=== PATIENT | female | born 1985 | race African-American/Black ===

== ENCOUNTER 2016-12-15 15:46 | Emergency (ER) | payer MEDICAID ==
[~2016-12-15] VITALS: Ht 165.1 cm; Wt 86.2 kg
[2016-12-15 15:56] VITALS: BP 113/78
[2016-12-15] MEDS ORDERED: PROAIR HFA8.5 GM INH (16:43)
[2016-12-15] MEDS ORDERED: PREDNISONE20 MG ORAL (16:43)
[2016-12-15] MEDS ORDERED: IBUPROFEN600 MG ORAL (16:43)
[2016-12-15] MEDS ORDERED: PROMETHAZI6.25 MG/1 ORAL (16:43)
[2016-12-15 17:19] VITALS: BP 122/78
--- NOTE | 2016-12-16 21:02 | Emergency Room Report ---
History of Present Illness General Chief Complaint: Chest Pain Source: Patient Present Illness HPI The patient is a 31-year-old female presenting for 3 days of cough and chest pain. The patient denies any sick contacts recent travel. She admits to history of smoking cigarettes. Pain is described as an 8/10 dull ache to the midchest and radiates to the left side of the back. Worse with coughing. She denies shortness of breath. She denies palpitations. She denies any cardiac history She denies any other symptoms including nausea, vomiting, dizziness, abdominal pain Allergies: Coded Allergies: No Known Allergies (Unverified , 12/15/16) Patient History Past Medical History: see triage record Pertinent Family History: none Social History: Reports: smoking Last Menstrual Period: 12/10/16 Now: No : 0 Para: 0 Reviewed Nursing Documentation: PMH: Agreed, PSxH: Agreed Review of Systems All Other Systems: negative except mentioned in HPI Physical Exam Vital Signs Date Time Temp Pulse Resp B/P Pulse Ox O2 Delivery O2 Flow Rate FiO2 12/15/16 15:56 98.2 93 16 113/78 98 Room Air 12/15/16 16:30 99 Sp02 EP Interpretation: reviewed, normal General Appearance: no apparent distress, alert, GCS 15, non-toxic Head: normocephalic, atraumatic Eyes: bilateral eye PERRL, bilateral eye normal inspection ENT: hearing grossly normal, normal pharynx, no angioedema, normal voice Neck: full range of motion, supple/symm/no masses Respiratory: chest non-tender, normal breath sounds, speaking full sentences, wheezing - minimal diffuse Cardiovascular #1: regular rate, rhythm, no edema, no JVD, no murmur, no rub Gastrointestinal: normal bowel sounds, non tender, soft, non-distended, no guarding, no rebound Musculoskeletal: back normal, gait/station normal, normal range of motion, non- tender Neurologic: alert, oriented x3, responsive, motor strength/tone normal, sensory intact, speech normal Psychiatric: judgement/insight normal, memory normal, mood/affect normal, no suicidal/homicidal ideation Skin: normal color, no rash, warm/dry, well hydrated Lymphatic: no adenopathy Medical Decision Making PA Attestation Dr. Rivera is my supervising physician. Patient management was discussed with my supervising physician Diagnostic Impression: Primary Impression: Bronchitis ER Course The patient is a 31-year-old female presenting for 3 days of cough and chest pain Differential diagnosis include but not limited to bronchitis, asthma, pharyngitis, ACS, PE, among others PE: vitals WNL. NAD HEENT exam is unremarkable. RRR Lungs reveal minimal bilateral diffuse wheezing. Otherwise exam is unremarkable EKG shows no acute changes. Normal sinus rhythm. Normal rate The patient will be treated for bronchitis with oral steroids, albuterol and cough medication. She is to followup with primary doctor ER precautions given EKG Diagnostic Results EP Interpretation: NSR. No acute findings Rate: normal Rhythm: NSR ST Segments: no acute changes ASA given to the pt in ED: No PA Scribe Text EKG was reviewed and read with my supervising physician. No acute ST segment changes are seen. Normal rate and rhythm. No acute changes. Last Vital Signs Date Time Temp Pulse Resp B/P Pulse Ox O2 Delivery O2 Flow Rate FiO2 12/15/16 17:19 98.2 90 18 122/78 98 Room Air 12/15/16 16:30 99 Status: improved Disposition: HOME, SELF-CARE Condition: Improved Scripts Promethazine Hcl (PROMETHAZINE HCL*) 6.25 Mg/5 Ml Syrup 5 ML ORAL Q6H, #120 ML 0 Refills Prov: TERZIAN,SANDY P.A. 12/15/16 Albuterol Sulfate* (PROAIR HFA*) 8.5 Gm Hfa.aer.ad 2 PUFFS INH Q6H, #8.5 GM 0 Refills Prov: TERZIAN,SANDY P.A. 12/15/16 Prednisone* (PREDNISONE*) 20 Mg Tablet 40 MG ORAL DAILY, #10 TAB Prov: TERZIAN,SANDY P.A. 12/15/16 Ibuprofen* (MOTRIN*) 600 Mg Tablet 600 MG ORAL Q8H Y for For Pain, #30 TAB 0 Refills Prov: TERZIAN,SANDY P.A. 12/15/16 Referrals: [facility],REFERRING (PCP) Patient Instructions: Acute Bronchitis Additional Instructions: I discussed my findings with the patient. All questions and concerns have been answered. Treatment and medication compliance have been addressed. I advised the patient that they need to follow up with PMD in 3-5 days. Return to ED if pain remains or worsens, cough worsens or remains, you notice blood in your sputum, you notice wheezing, you experience a fever, or if needed for any reason. Patient verbalized understanding of discharge instructions. SANDY FOURNIER Dec 16, 2016 21:02
== END 2016-12-15 17:21 | disposition home or self-care (01) ==
LOC: EMR 17:00
DX: J40 Bronchitis, not specified as acute or chronic (principal); F17.200 Nicotine dependence, unspecified, uncomplicated
CPT/HCPCS: 93005; 99283

== ENCOUNTER 2017-01-12 22:16 | Emergency (ER) | payer MEDICAID ==
[~2017-01-12] VITALS: Ht 165.1 cm; Wt 54.0 kg
[~2017-01-12 22:16] MED LIST: IBUPROFEN600 MG ORAL; PREDNISONE20 MG ORAL; PROAIR HFA8.5 GM INH; PROMETHAZI6.25 MG/1 ORAL
[2017-01-12 22:40] VITALS: BP 125/74
[2017-01-12] MEDS ORDERED: HYDROmorphone 1mg/ml Carpuject IVP ONE (22:45)
--- NOTE | 2017-01-12 22:59 | Emergency Room Report ---
History of Present Illness General Chief Complaint: Abdominal Pain Source: Patient Present Illness HPI This is a 31-year-old female who has a history of hours fibroids. She said that another ER to her that the size of fibroids about 7 months . She has chronic abdominal pain. She hasn't been able to see a publicity agent for evaluation and possible surgery. She presents with chief complaint of abdominal pain. Mostly left side. No nausea no vomiting. Pain is 10 out of 10. Worse than his usual pain. No fever or chills. Does have diarrhea. No other complaint. No urinary complaint. Allergies: Coded Allergies: No Known Allergies (Unverified , 12/15/16) Patient History Past Medical History: see triage record, old chart reviewed Past Surgical History: other Pertinent Family History: none Social History: Denies: smoking Last Menstrual Period: DECEMBER 09 ON DEPO SHOT Now: No Immunizations: other Reviewed Nursing Documentation: PMH: Agreed, PSxH: Agreed Review of Systems Eye: Denies: blurred vision, eye pain ENT: Denies: ear pain, nose congestion, throat swelling Respiratory: Denies: cough, shortness of breath Cardiovascular: Denies: chest pain, palpitations Gastrointestinal: Reports: abdominal pain, Denies: diarrhea, nausea, vomiting Musculoskeletal: Denies: back pain, joint pain Skin: Denies: rash Neurological: Denies: headache, numbness Endocrine: Denies: increased thirst, increased urine Hematologic/Lymphatic: Denies: easy bruising All Other Systems: negative except mentioned in HPI Physical Exam Vital Signs Date Time Temp Pulse Resp B/P Pulse Ox O2 Delivery O2 Flow Rate FiO2 01/12/17 22:24 99.5 114 18 126/74 98 Room Air vitals normal except for tachycardia Sp02 EP Interpretation: reviewed, normal General Appearance: well appearing, no apparent distress, alert Head: normocephalic, atraumatic Eyes: bilateral eye EOMI, bilateral eye PERRL ENT: hearing grossly normal, normal pharynx Neck: full range of motion, supple, no meningismus Respiratory: chest non-tender, lungs clear, normal breath sounds Cardiovascular #1: regular rate, rhythm, no murmur Gastrointestinal: normal bowel sounds, no organomegaly, no bruit, non-distended , tenderness - Diffuse lower quadrants. Large palpable mass to as above umbilicus Musculoskeletal: back normal, gait/station normal, normal range of motion Psychiatric: mood/affect normal Skin: warm/dry Medical Decision Making Diagnostic Impression: Primary Impression: Pelvic pain Additional Impression: Fibroid, uterine Qualified Codes: D25.9 - Leiomyoma of uterus, unspecified ER Course Patient with large uterine fibroid. Is causing pain probably secondary to obstruction. No evidence of infection. No evidence of torsion. No evidence of ectopic. She will probably need partial hysterectomy. We'll discharge home. Pain is better controlled now. Lab Results Impression labs normal Last Vital Signs Date Time Temp Pulse Resp B/P Pulse Ox O2 Delivery O2 Flow Rate FiO2 01/12/17 22:24 99.5 114 18 126/74 98 Room Air Status: improved Disposition: HOME, SELF-CARE Condition: Stable Scripts Hydrocodone/Acetaminophen 5-325* (HYDROCODONE/ACETAMINOPHEN 5-325*) 1 Each Tablet 1 TAB ORAL Q6H Y for For Pain, #30 TAB 0 Refills Prov: DAVID YANEZ M.D. 01/13/17 Additional Instructions: Followup with your DrAdriana in 7 days. You would need a referral to see a publicity agent for possible partial hysterectomy. Return if symptom worsen. DAVID YANEZ M.D. Jan 12, 2017 22:59
[2017-01-12 23:21] LABS: APPEARANCE,URINE CLEAR; BASOPHILS % (AUTO) 1.3 % (0.0-2.0); EOSINOPHILS % (AUTO) 1.5 % (0.0-3.0); KETONES,URINE NEGATIVE (NEGATIVE); LEUKOCYTE ESTERASE ,URINE 2+ (NEGATIVE); LYMPHOCYTES % (AUTO) 20.6 % (20.0-45.0); MEAN CORPUSCULAR HEMOGLOBIN 34.2 PG (27.0-31.0); MEAN CORPUSCULAR HGB CONC 35.4 G/DL (32.0-36.0); MEAN CORPUSCULAR VOLUME 96 FL (80-99); MEAN PLATELET VOLUME 9.2 FL (6.5-10.1); MONOCYTES % (AUTO) 8.6 % (1.0-10.0); NEUTROPHILS % (AUTO) 68.1 % (45.0-75.0); NITRITE,URINE NEGATIVE (NEGATIVE); PH,URINE 6 (4.5-8.0); PLATELET COUNT 234 K/UL (150-450); PROTEIN,URINE 1+ (NEGATIVE); RED BLOOD COUNT 4.05 M/UL (4.20-5.40); RED CELL DISTRIBUTION WIDTH 11.2 % (11.6-14.8); UROBILINOGEN,URINE NORMAL MG/DL (0.0-1.0); WHITE BLOOD COUNT 8.6 K/UL (4.8-10.8)
[2017-01-12 23:29] LABS: RBC,URINE 0-2 /HPF (0 - 2); WBC,URINE 0-2 /HPF (0 - 2)
[2017-01-12 23:30] LABS: BACTERIA,URINE OCCASIONAL /HPF; MUCUS,URINE MANY /LPF (NONE/OCC); SQUAMOUS EPITHELIAL CELL,UR MODERATE /LPF (NONE/OCC)
[2017-01-12] MEDS ORDERED: Ketorolac 30mg Inj IV ONE (23:45)
[2017-01-12 23:50] VITALS: BP 120/78
[2017-01-12 23:57] LABS: ALANINE AMINOTRANSFERASE 26 U/L (3-33); ALBUMIN/GLOBULIN RATIO 1.1 (1.0-2.7); ANION GAP 12 (5-15); ASPARTATE AMINO TRANSFERASE 20 U/L (5-40); CALCIUM 9.3 mg/dL (8.6-10.2); CARBON DIOXIDE 22 mEQ/L (20-30); CHLORIDE 107 mEQ/L (98-107); CREATININE 0.9 mg/dL (0.5-0.9); GLOMERULAR FILTRATION RATE > 60 mL/min (>60); HEMOLYSIS 3; LIPASE 22 U/L (< 60); POTASSIUM 4.1 mEQ/L (3.4-4.9); SODIUM 141 mEQ/L (135-145); TOTAL PROTEIN 7.8 g/dL (6.6-8.7)
[2017-01-13] MEDS ORDERED: HYDROCODON-ACE1 EA15 ORAL (00:19)
== END 2017-01-13 00:23 | disposition home or self-care (01) ==
LOC: EMR 22:35
DX: D25.9 Leiomyoma of uterus, unspecified (principal); R10.2 Pelvic and perineal pain; R00.0 Tachycardia, unspecified
CPT/HCPCS: 36415; 80053; 81003; 81025; 83690; 85025; 96374; 96375; 99284; J1170; J1885; J2405

== ENCOUNTER 2017-01-28 23:45 | Emergency (ER) | payer MEDICAID ==
[~2017-01-28] VITALS: Ht 165.1 cm; Wt 90.7 kg
[~2017-01-28 23:45] MED LIST changes: +HYDROCODON-ACE1 EA15 ORAL
--- NOTE | 2017-01-29 00:20 | Emergency Room Report ---
History of Present Illness General Chief Complaint: Abdominal Pain Source: Patient Present Illness HPI Patient presents with complaints of lower abdominal suprapubic abdominal pain Patient reports that she has known history of fibroids Was diagnosed last year with ultrasound And is trying to have them removed the pain over the last weekend has worsened Denies any dysuria frequency denies any chest pain or short of breath There is some flank discomfort with this Patient was here recently with similar complaints denies any vaginal discharge or foul smell Allergies: Coded Allergies: No Known Allergies (Unverified , 12/15/16) Patient History Past Medical History: see triage record Pertinent Family History: none Last Menstrual Period: 01/10 Now: No : 0 Para: 0 Reviewed Nursing Documentation: PMH: Agreed, PSxH: Agreed Nursing Documentation-PMH Hx Gastrointestinal Problems: Yes - FIBROIDS Review of Systems All Other Systems: negative except mentioned in HPI Physical Exam Vital Signs Date Time Temp Pulse Resp B/P Pulse Ox O2 Delivery O2 Flow Rate FiO2 01/28/17 23:59 99.1 81 16 139/66 96 Room Air Sp02 EP Interpretation: reviewed, normal General Appearance: well appearing, no apparent distress Head: normocephalic, atraumatic Eyes: bilateral eye EOMI, bilateral eye PERRL ENT: hearing grossly normal, normal pharynx, TMs + canals normal, uvula midline Neck: full range of motion, supple, no meningismus, no bony tend Respiratory: lungs clear, normal breath sounds, no rhonchi, no respiratory distress, no retraction, no accessory muscle use Cardiovascular #1: normal peripheral pulses, regular rate, rhythm, no edema, no gallop, no JVD, no murmur Gastrointestinal: normal bowel sounds, non tender, soft, no organomegaly, non- distended, no guarding, no hernia, no pulsatile mass, no rebound, other - Patient has a palpable mass in the lower suprapubic lower abdominal region likely in line with the reported fibroid Genitourinary: no CVA tenderness Musculoskeletal: normal inspection Neurologic: oriented x3, responsive, cake icer and packer III-XII nml as tested, motor strength/ tone normal, sensory intact Psychiatric: mood/affect normal Skin: normal color, no rash, warm/dry, palpation normal Lymphatic: normal inspection, no adenopathy Medical Decision Making Diagnostic Impression: Primary Impression: Abdominal pain Additional Impression: Uterine fibroid ER Course Multiple differentials were considered Patient has had a recent visit with extensive workup along with urine sample obtained this was not repeated Had discussion with the patient regarding the need for outpatient followup Patient's uterine fibroids are palpable clinically showing signs of extremely enlarged pathology Patient has been given recent [place] prescription requesting different prescription at this time And the patient was encouraged to followup as an outpatient process Last Vital Signs Date Time Temp Pulse Resp B/P Pulse Ox O2 Delivery O2 Flow Rate FiO2 01/28/17 23:59 99.1 81 16 139/66 96 Room Air Status: unchanged Disposition: HOME, SELF-CARE Condition: Stable Scripts Ibuprofen* (MOTRIN*) 600 Mg Tablet 600 MG ORAL Q8H Y for For Pain, #20 TAB 0 Refills Prov: GUANAKITO NEWELL D.O. 01/29/17 Additional Instructions: Patient is provided with the discharge instructions notified to follow up with primary doctor in the next 2-3 days otherwise return to the er with any worsening symptoms. Please note that this report is being documented using [employer] technology. This can lead to erroneous entry secondary to incorrect interpretation by the dictating instrument. GUANAKITO NEWELL D.O. Jan 29, 2017 00:20
[2017-01-29] MEDS ORDERED: Ketorolac 60mg Inj IM ONE (00:30)
[2017-01-29] MEDS ORDERED: IBUPROFEN600 MG ORAL (00:39)
[2017-01-29 01:27] VITALS: BP_SYST 129; BP_SYST 139; BP_DIAS 66; BP_DIAS 72
== END 2017-01-29 00:50 | disposition home or self-care (01) ==
LOC: EMR 01-29 00:20
DX: D25.9 Leiomyoma of uterus, unspecified (principal); R10.30 Lower abdominal pain, unspecified
CPT/HCPCS: 96372; 99283

== ENCOUNTER 2017-03-26 00:36 | Emergency (ER) | payer MEDICAID ==
[~2017-03-26] VITALS: Ht 165.1 cm; Wt 90.7 kg
[2017-03-26] MEDS ORDERED: NKM (00:46)
[2017-03-26 00:55] VITALS: BP 133/98
[2017-03-26] MEDS ORDERED: IBUPROFEN600 MG ORAL (01:10)
--- NOTE | 2017-03-26 01:10 | Emergency Room Report ---
History of Present Illness General Chief Complaint: Wound Recheck/Suture Removal Source: Patient Present Illness HPI Is a 31-year-old female who presents with a wound check and arm pain. 2 days ago she punched a window and sustained laceration to the forearm. She was seen at an outside ER and had stitches done. She said since then she been hurting. Denies any fever chills denies any nausea vomiting. Not on antibiotics. Worse with movement and palpation. No redness or fever. Allergies: Coded Allergies: No Known Allergies (Unverified , 12/15/16) Patient History Past Medical History: see triage record, old chart reviewed Past Surgical History: none Pertinent Family History: none Social History: Denies: smoking Last Menstrual Period: 1 month ago Now: No Immunizations: other Reviewed Nursing Documentation: PMH: Agreed, PSxH: Agreed Nursing Documentation-PMH Past Medical History: No History, Except For Hx Gastrointestinal Problems: No - Fibroids Review of Systems Eye: Denies: eye pain, blurred vision ENT: Denies: ear pain, nose congestion, throat swelling Respiratory: Denies: cough, shortness of breath Cardiovascular: Denies: chest pain, palpitations Gastrointestinal: Denies: abdominal pain, diarrhea, nausea, vomiting Musculoskeletal: Denies: back pain, joint pain Skin: Denies: rash Neurological: Denies: headache, numbness Endocrine: Denies: increased thirst, increased urine Hematologic/Lymphatic: Denies: easy bruising All Other Systems: negative except mentioned in HPI Physical Exam Vital Signs Date Time Temp Pulse Resp B/P (MAP) Pulse Ox O2 Delivery O2 Flow Rate FiO2 03/26/17 00:41 98.8 81 17 133/98 100 Room Air vitals normal Sp02 EP Interpretation: reviewed, normal General Appearance: well appearing, no apparent distress, alert Head: normocephalic, atraumatic Eyes: bilateral eye PERRL, bilateral eye EOMI ENT: hearing grossly normal, normal pharynx Neck: full range of motion, supple, no meningismus Respiratory: chest non-tender, lungs clear, normal breath sounds Cardiovascular #1: regular rate, rhythm, no murmur Gastrointestinal: normal bowel sounds, non tender, no mass, no organomegaly, no bruit, non-distended Musculoskeletal: back normal, gait/station normal, normal range of motion, other - Left forearm: Wound looks clean without any evidence of infectio Soft tissue tenderness of the forearm. Full range of the wrist and elbow. Psychiatric: mood/affect normal Skin: warm/dry Medical Decision Making Diagnostic Impression: Primary Impression: Suture check Additional Impression: Contusion of forearm, left Qualified Codes: S50.12XA - Contusion of left forearm, initial encounter ER Course Patient presents with forearm pain. This probably from contusion. No evidence of infection. Looks clean. We'll discharge home. Last Vital Signs Date Time Temp Pulse Resp B/P (MAP) Pulse Ox O2 Delivery O2 Flow Rate FiO2 03/26/17 00:41 98.8 81 17 133/98 100 Room Air Status: improved Disposition: HOME, SELF-CARE Condition: Stable Scripts Ibuprofen* (MOTRIN*) 600 Mg Tablet 600 MG ORAL THREE TIMES A DAY, #30 TAB 0 Refills Prov: DAVID YANEZ M.D. 03/26/17 Patient Instructions: Wound Check Additional Instructions: Keep wound clean. Followup with your Dr. in 7 days for suture removal. Return if worse. DAVID YANEZ M.D. Mar 26, 2017 01:10
[2017-03-26 01:20] VITALS: BP 133/98
== END 2017-03-26 01:20 | disposition home or self-care (01) ==
LOC: EMR 01:00
DX: S51.812D Laceration without foreign body of left forearm, subsequent encounter (principal); S50.12XD Contusion of left forearm, subsequent encounter; W22.8XXD Striking against or struck by other objects, subsequent encounter
CPT/HCPCS: 99281

== ENCOUNTER 2017-12-02 21:33 | Emergency (ER) | payer MEDICAID ==
[~2017-12-02] VITALS: Ht 165.1 cm; Wt 99.8 kg
[~2017-12-02 21:33] MED LIST changes: +NKM
--- NOTE | 2017-12-02 21:47 | Emergency Room Report ---
History of Present Illness General Chief Complaint: Headache Source: Patient Present Illness HPI Is a 32-year-old female with a history of fibroid uterus. She presents with chief complaint of generalized body pain and swelling to her legs. This is a chronic episodic problem. Onset for last few days. Complaining of pain is 9 out of 10. Worse when she stands for a while. Take ibuprofen without relief. Denies any fever chills. Also with headache and body pain. Seen several times for this and was attributed to her fibroid. Never seen a core rescuer. She also complaining of right calf pain. This been ongoing for last couple days. This is a new problem. Her pain is 9 out of 10. Not on control pill. No family history of DVT. Allergies: Coded Allergies: No Known Allergies (Unverified , 12/15/16) Patient History Past Medical History: see triage record, old chart reviewed Past Surgical History: none Pertinent Family History: none Social History: Denies: smoking Last Menstrual Period: november Now: No Immunizations: other Reviewed Nursing Documentation: PMH: Agreed; PSxH: Agreed Nursing Documentation-PMH Hx Gastrointestinal Problems: No - Fibroids Review of Systems Eye: Denies: eye pain, blurred vision ENT: Denies: ear pain, nose congestion, throat swelling Respiratory: Denies: cough, shortness of breath Cardiovascular: Denies: chest pain, palpitations Gastrointestinal: Denies: abdominal pain, diarrhea, nausea, vomiting Musculoskeletal: Reports: joint pain, joint swelling, muscle pain, muscle stiffness; Denies: back pain Skin: Denies: rash Neurological: Denies: headache, numbness Endocrine: Denies: increased thirst, increased urine Hematologic/Lymphatic: Denies: easy bruising All Other Systems: negative except mentioned in HPI Physical Exam Vital Signs Date Time Temp Pulse Resp B/P (MAP) Pulse Ox O2 Delivery O2 Flow Rate FiO2 12/02/17 21:37 98.8 94 16 130/84 98 Room Air 98.8 vitals normal. Sp02 EP Interpretation: reviewed, normal General Appearance: well appearing, no apparent distress, alert Head: normocephalic, atraumatic Eyes: bilateral eye PERRL, bilateral eye EOMI ENT: hearing grossly normal, normal pharynx Neck: full range of motion, supple, no meningismus Respiratory: chest non-tender, lungs clear, normal breath sounds Cardiovascular #1: regular rate, rhythm, no murmur Gastrointestinal: normal bowel sounds, non tender, no mass, no organomegaly, no bruit, non-distended Musculoskeletal: back normal, gait/station normal, normal range of motion, tender - over right popliteal area. No calf tenderness. I did not appreciate any pitting edema Psychiatric: mood/affect normal Skin: warm/dry Medical Decision Making Diagnostic Impression: Primary Impression: Myalgia Additional Impressions: Fibroid, uterine Qualified Codes: D25.9 - Leiomyoma of uterus, unspecified Knee pain, right Qualified Codes: M25.561 - Pain in right knee ER Course Patient presents with body pain. Inflammatory markers slightly elevated and sedimentation rate. This may be an autoimmune problem. She does have a very large palpable fibroid has been causing her abdominal pain. She has arty seen a corn sheller in partial hysterectomy recommended. She is in the process of having that scheduled. No evidence of DVT. No evidence of infection. We'll discharge home. Lab Results Impression labs unremarkable CT/MRI/US Diagnostic Results CT/MRI/US Diagnostic Results : Imaging Test Ordered: right leg ultrasound Impression negative for DVT per pitch worker Last Vital Signs Date Time Temp Pulse Resp B/P (MAP) Pulse Ox O2 Delivery O2 Flow Rate FiO2 12/02/17 21:37 98.8 94 16 130/84 98 Room Air 98.8 Status: improved Disposition: HOME, SELF-CARE Condition: Stable Scripts Prednisone* (PREDNISONE*) 20 Mg Tablet 60 MG ORAL DAILY, #12 TAB Prov: DAVID YANEZ M.D. 12/03/17 Hydrocodone/Acetaminophen 5-325* (HYDROCODONE/ACETAMINOPHEN 5-325*) 1 Each Tablet 1 TAB ORAL Q6H PRN for For Pain, #20 TAB 0 Refills Prov: DAVID YANEZ M.D. 12/03/17 Additional Instructions: Follow-up your doctor in a week. Recommend scheduling with corn sheller for partial hysterectomy. You may benefit from referral to see a core rescuer to rule out autoimmune disease. Return if symptom worsen. DAVID YANEZ M.D. Dec 02, 2017 21:47
[2017-12-02 22:00] VITALS: BP 130/84
[2017-12-02] MEDS ORDERED: Ketorolac 30mg Inj IV ONE (22:00)
[2017-12-02 22:22] LABS: APPEARANCE,URINE CLEAR; BILIRUBIN, URINE NEGATIVE (NEGATIVE); COLOR,URINE PALE YELLOW; GLUCOSE, URINE (UA) NEGATIVE (NEGATIVE); KETONES,URINE NEGATIVE (NEGATIVE); LEUKOCYTE ESTERASE ,URINE 1+ (NEGATIVE); NITRITE,URINE NEGATIVE (NEGATIVE); PH,URINE 6 (4.5-8.0); PROTEIN,URINE NEGATIVE (NEGATIVE); UROBILINOGEN,URINE NORMAL MG/DL (0.0-1.0)
[2017-12-02 22:32] LABS: BASOPHILS % (AUTO) 1.7 % (0.0-2.0); EOSINOPHILS % (AUTO) 1.6 % (0.0-3.0); HEMATOCRIT 44.4 % (37.0-47.0); HEMOGLOBIN 15.4 G/DL (12.0-16.0); LYMPHOCYTES % (AUTO) 38.8 % (20.0-45.0); MEAN CORPUSCULAR VOLUME 90 FL (80-99); MONOCYTES % (AUTO) 6.4 % (1.0-10.0); NEUTROPHILS % (AUTO) 51.5 % (45.0-75.0); PLATELET COUNT 260 K/UL (150-450); RED BLOOD COUNT 4.91 M/UL (4.20-5.40); RED CELL DISTRIBUTION WIDTH 11.2 % (11.6-14.8); WHITE BLOOD COUNT 7.3 K/UL (4.8-10.8)
[2017-12-02 22:49] LABS: ANION GAP 9 mmol/L (5-15); BLOOD UREA NITROGEN 11 mg/dL (7-18); CALCIUM 9.5 MG/DL (8.5-10.1); CARBON DIOXIDE 25 MMOL/L (21-32); CHLORIDE 105 MMOL/L (98-107); SODIUM 139 MMOL/L (136-145)
[2017-12-03] VITALS: BP 130/90
[2017-12-03] MEDS ORDERED: Dexamethasone 4mg/ml vial IVP ONE
[2017-12-03] MEDS ORDERED: Morphine Sulfate 4mg/ml Inj IVP ONE (00:15)
[2017-12-03] MEDS ORDERED: PREDNISONE20 MG ORAL (00:17)
[2017-12-03] MEDS ORDERED: HYDROCODON-ACE1 EA15 ORAL (00:17)
[2017-12-03 00:34] VITALS: BP 130/90
== END 2017-12-03 00:34 | disposition home or self-care (01) ==
LOC: EMR 22:03
DX: M79.1 Myalgia (principal); D25.9 Leiomyoma of uterus, unspecified; M25.561 Pain in right knee
CPT/HCPCS: 36415; 80048; 81001; 81025; 85025; 85651; 93971; 96374; 96375; 99284; J1100; J1885; J2270

== ENCOUNTER 2018-04-22 19:34 | Emergency (ER) | payer MEDICAID ==
[~2018-04-22] VITALS: Ht 165.1 cm; Wt 102.1 kg
[2018-04-22 19:50] VITALS: BP 134/91
[2018-04-22] MEDS ORDERED: Ketorolac 30mg Inj IM ONE (20:15)
[2018-04-22] MEDS ORDERED: Excedrin Migraine tab ORAL ONE (20:15)
[2018-04-22] MEDS ORDERED: Excedrin Migraine tab ONE (20:23)
[2018-04-22] MEDS ORDERED: Metoclopramide 10mg/2ml Inj ONE (20:30)
[2018-04-22] MEDS ORDERED: Sodium Chloride 500ML 500 ML IV ONE (20:45)
[2018-04-22] MEDS ORDERED: Metoclopramide 10mg/2ml Inj IVP ONE (20:45)
[2018-04-22] MEDS ORDERED: Ketorolac 30mg Inj IV ONE (20:45)
[2018-04-22 20:48] LABS: APPEARANCE,URINE CLEAR; BILIRUBIN, URINE NEGATIVE (NEGATIVE); GLUCOSE, URINE (UA) NEGATIVE (NEGATIVE); KETONES,URINE 1+ (NEGATIVE); LEUKOCYTE ESTERASE ,URINE 1+ (NEGATIVE); NITRITE,URINE NEGATIVE (NEGATIVE); PH,URINE 6.5 (4.5-8.0); PROTEIN,URINE 1+ (NEGATIVE); UROBILINOGEN,URINE 1 MG/DL (0.0-1.0)
[2018-04-22 20:50] LABS: COLOR,URINE YELLOW
--- NOTE | 2018-04-22 21:18 | Emergency Room Report ---
History of Present Illness General Chief Complaint: Headache Source: Patient (Lovely Christensen) Present Illness HPI 32-year-old female presents to the emergency department complaining of 10 out of 10 in severity exacerbation of her migraine that has been progressive since approximately one week before . Patient reports she has a history of frequent headaches and had a MRI performed for which she was told was normal. Patient states that her doctor is unable to determine why she keeps getting frequent headaches. Patient states that this particular headache has been lasting longer than normal. Patient denies vomiting or nausea she does report intermittent disturbances in her vision and sensitivity to the bright lights and loud noises pt. came to ED due to abrupt worsening of these symptoms. pt. states initial disturbances of seeing spots. Patient denies fevers, chills, recent head trauma, weakness in the extremities or paresthesias. She denies and states she is currently on her menstrual cycle. (Lovely Christensen) Allergies: Coded Allergies: No Known Allergies (Unverified , 12/15/16) Patient History Past Medical History: see triage record Past Surgical History: none Pertinent Family History: none Last Menstrual Period: now Now: No Reviewed Nursing Documentation: PMH: Agreed; PSxH: Agreed (Lovely Christensen) Nursing Documentation-PMH Past Medical History: No History, Except For Hx Gastrointestinal Problems: No - Fibroids (Lovely Christensen) Review of Systems All Other Systems: negative except mentioned in HPI (Lovely Christensen) Physical Exam Vital Signs Date Time Temp Pulse Resp B/P (MAP) Pulse Ox O2 Delivery O2 Flow Rate FiO2 04/22/18 19:46 98.6 85 16 134/91 97 Room Air Sp02 EP Interpretation: reviewed, normal General Appearance: alert, GCS 15, non-toxic, moderate distress Head: normocephalic, atraumatic Eyes: bilateral eye normal inspection, bilateral eye PERRL, bilateral eye EOMI , bilateral eye photophobia ENT: hearing grossly normal - hyperacusis, normal voice Neck: full range of motion Respiratory: lungs clear, normal breath sounds, speaking full sentences Cardiovascular #1: regular rate, rhythm Musculoskeletal: back normal, gait/station normal, normal range of motion, non- tender Neurologic: alert, oriented x3, responsive, motor strength/tone normal, sensory intact, normal gait, speech normal, other - no facial droop, grossly normal Psychiatric: judgement/insight normal Skin: normal color, no rash, warm/dry, well hydrated (Lovely Christensen) Medical Decision Making PA Attestation Dr. Rivera is my supervising Physician whom patient management has been discussed with. (Lovely Christensen) Medicare Attestation Patient examined and evaluated as well I do agree with the history and findings Patient has been attempting outpatient follow-up and has neurology referral being made on my evaluation there is no sign of any central process patient has a benign neurological exam Patient also reports that she is getting set for surgery, for her fibroids Given the clinical evaluation and the findings here patient is stable for continued outpatient follow-up Please note that with review of CURES patient has had recent [place] prescriptions by 2 different providers and therefore further medicine in this category is deferred to outpatient follow-up (Venessa Abbott DO) Diagnostic Impression: Primary Impression: Headache ER Course 32-year-old female presents to the emergency department complaining of 10 out of 10 in severity exacerbation of her migraine that has been progressive since approximately one week before [place]. Patient reports she has a history of frequent headaches and had a MRI performed for which she was told was normal. Patient states that her doctor is unable to determine why she keeps getting frequent headaches. Patient states that this particular headache has been lasting longer than normal. Patient denies vomiting or nausea she does report intermittent disturbances in her vision and sensitivity to the bright lights and loud noises pt. came to ED due to abrupt worsening of these symptoms. pt. states initial disturbances of seeing spots. Patient denies fevers, chills, recent head trauma, weakness in the extremities or paresthesias. She denies and states she is currently on her menstrual cycle. Ddx considered but are not limited to migraine, SAH, Pseudomotor Cerebri, Mass lesion, Cluster JARA, Tension JARA, Post lumbar puncture JARA. Vital signs: are WNL, pt. is afebrile H&PE are most consistent with possible migraine headache ORDERS: -UA : Unremarkable consistent with being on menstrual cycle. ED INTERVENTIONS: -Reglan IV -IV Toradol - 1 liter NS --Pt. was not having improvement with interventions. She reports dizziness. pt. is referred to attending physician as a sign out for further evaluation. DISCHARGE: At this time pt. is stable for d/c to home. Will provide printed patient care instructions, and any necessary prescriptions. Care plan and follow up instructions have been discussed with the patient prior to discharge. Labs Test 04/22/18 20:20 Urine Color Yellow Urine Appearance Clear Urine pH 6.5 (4.5-8.0) Urine Specific [place] 1.020 (1.005-1.035) Urine Protein 1+ (NEGATIVE) Urine Glucose (UA) Negative (NEGATIVE) Urine Ketones 1+ (NEGATIVE) Urine Blood 2+ (NEGATIVE) Urine Nitrite Negative (NEGATIVE) Urine Bilirubin Negative (NEGATIVE) Urine Urobilinogen 1 MG/DL (0.0-1.0) Urine Leukocyte Esterase 1+ (NEGATIVE) Urine RBC 2-4 /HPF (0 - 2) Urine WBC 0-2 /HPF (0 - 2) Urine Squamous Epithelial Cells Few /LPF (NONE/OCC) Urine Bacteria Few /HPF (NONE) (Lovely Christensen) Last Vital Signs Date Time Temp Pulse Resp B/P (MAP) Pulse Ox O2 Delivery O2 Flow Rate FiO2 04/22/18 19:50 98.6 78 16 134/91 97 Room Air (Lovely Christensen) Signed Out To: Dr. abbott (Lovely Christensen) Patient Instructions: Migraine Headache Additional Instructions: Take medications as directed. Follow up with a Primary Care Provider in 3-5 days For a referral to have NEUROLOGIST Evaluation, even if your symptoms have resolved. --Please review list of primary care clinics, if you do not already have a primary care provider Return sooner to ED if new symptoms occur, or current symptoms become worse. - Please note that this Emergency Department Report was dictated using [facility] [employer] [facility] technology software, occasionally this can lead to erroneous entry secondary to interpretation by the dictation equipment. Lovely Christensen Apr 22, 2018 21:17 Venessa Abbott DO Apr 22, 2018 22:52
[2018-04-22] MEDS ORDERED: Metoclopramide 10mg/2ml Inj IM SCH (22:00)
[2018-04-22 22:54] VITALS: BP 134/91
== END 2018-04-22 22:55 | disposition home or self-care (01) ==
LOC: EMR 22:30
DX: R51 Headache (principal)
CPT/HCPCS: 81003; 96372; 96374; 96375; 99284; J1885; J2765; J7040

== ENCOUNTER 2019-01-18 20:16 | Emergency (ER) | payer MEDICAID ==
[~2019-01-18] VITALS: Ht 165.1 cm; Wt 101.2 kg
[2019-01-18 20:53] VITALS: BP 128/85
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
[2019-01-18] MEDS ORDERED: HYDROmorphone 1mg/ml Carpuject IM ONE (21:15)
--- NOTE | 2019-01-18 21:42 | Diagnostic Imaging Report ---
EXAM: XR Left Femur CLINICAL HISTORY: PAIN TECHNIQUE: Frontal and lateral views of the left femur. COMPARISON: No relevant prior studies available. FINDINGS/IMPRESSION: No acute fracture of the left femur is identified. Postop changes imaged bony pelvis.
[2019-01-18] MEDS ORDERED: IBUPROFEN600 MG ORAL (21:56)
[2019-01-18] MEDS ORDERED: HYDROCODON-ACE1 EA15 ORAL (21:56)
--- NOTE | 2019-01-18 22:06 | NUR ---
ED Nurse Note: Patient cleared for discharge, has no s/s of acute distress. Patient is A&Ox4, ambulatory with a walker. Patient tolerated pain medication injection well but reports same pain level. patient verbalized understanding of discharge instructions and was seen at bedside for registration paperwork. PAtient departed with all belongings accompanied by her girlfriend.
[2019-01-18 22:09] VITALS: BP 128/85
== END 2019-01-18 22:09 | disposition home or self-care (01) ==
LOC: EMR 22:00
DX: G89.18 Other acute postprocedural pain (principal); E66.9 Obesity, unspecified; Z68.37 Body mass index [BMI] 37.0-37.9, adult
CPT/HCPCS: 73552; 96372; 99283; J1170

== ENCOUNTER 2019-02-03 21:08 | Emergency (ER) | payer MEDICAID ==
[~2019-02-03] VITALS: Ht 165.1 cm; Wt 104.3 kg
[2019-02-03 22:25] VITALS: BP 150/87
--- NOTE | 2019-02-03 22:25 | NUR ---
ED Nurse Note: pt had L hip surgery in december, L leg is swollen and 9/10 pain +1 pitting edema. pt denies hx of htn, chf, dm.
[2019-02-03] MEDS ORDERED: HYDROcodone/Acetamin 5/325 tab ORAL ONE (22:45)
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
[2019-02-03 22:55] VITALS: BP 147/84
--- NOTE | 2019-02-03 23:10 | NUR ---
ED Nurse Note: pt resting comfortably in bed, pt given blanket. pt is on the phone with family member. vss, no acute distress noted. bed placed at lowest position. x 2 siderails. will contniue to monitor. waiting for US tech.
--- NOTE | 2019-02-03 23:51 | NUR ---
ED Nurse Note: pt is asleep in bed, pain decreaed. still awaiting for arrival of US tech. will continue to monitor pt
--- NOTE | 2019-02-04 | NUR ---
ED Nurse Note: followed up with radiology per road grader, US tech will be here in 15 minutes
--- NOTE | 2019-02-04 00:31 | NUR ---
ED Nurse Note: pt resting in bed, vss. followed up with US tech. awaiting for their arrival.
--- NOTE | 2019-02-04 00:51 | NUR ---
ED Nurse Note: US at bedside
[2019-02-04] MEDS ORDERED: NAPROXEN500 M1 ORAL (01:20)
[2019-02-04 01:28] VITALS: BP 139/86
--- NOTE | 2019-02-04 01:28 | NUR ---
ER DISCHARGE NOTE: Patient is cleared to be discharged per ERMD, pt is aox4, on room air, with stable vital signs. pt was given dc and prescription instructions, pt was able to verbalize understanding, pt id band removed. pt is able to ambulate with steady gait. pt took all belongings.
--- NOTE | 2019-02-04 10:45 | Diagnostic Imaging Report ---
Indication: Left leg edema Technique: Grayscale and duplex images of the left lower extremity veins Comparison: none Findings: Grayscale and duplex images demonstrate no evidence of intraluminal thrombus. Normal phasic Doppler waveforms, demonstrating normal augmentation response and no evidence of valvular insufficiency. Normal compressibility. Impression: Negative for left lower extremity deep venous thrombosis This agrees with the preliminary interpretation provided overnight by [facility] teleradiology service.
== END 2019-02-04 01:28 | disposition home or self-care (01) ==
LOC: EMR 21:25
DX: M79.605 Pain in left leg (principal); J45.909 Unspecified asthma, uncomplicated
CPT/HCPCS: 93971; 99284